=== PATIENT | male | born 1990 | race African-American/Black ===

== ENCOUNTER 2021-11-02 08:35 | Emergency (ER) | payer OTHER, SELFPAY ==
--- NOTE | ~2021-11-02 | CT_ITS ---
EXAMINATION: CT HEAD WITHOUT CONTRAST CLINICAL INFORMATION: Left-sided facial numbness. COMPARISON: None TECHNIQUE: Contiguous axial imaging was performed from the skull base to vertex without intravenous administration of contrast. This CT examination was performed using dose optimization techniques as appropriate, variously including the following: *Automated exposure control *Adjustment of mA and/or kV according to patient size (this includes techniques or standardized protocols for targeted exams where dose is matched to indication/reason for exam; i.e. extremities or head) *Use of iterative reconstruction technique DLP: 693.8 mGy-cm FINDINGS: There is no evidence of acute intracranial hemorrhage or territorial infarction. No abnormal mass effect or midline shift is seen. Aragon to white matter differentiation is well preserved. No extra-axial fluid collections are identified. The ventricles are normal in size. There is no abnormal attenuation within the brain parenchyma. The osseous structures and soft tissues are normal. The visualized paranasal sinuses are unremarkable. Bilateral mastoid air cells are partially opacified. Incidental note is made of prominent lobulated soft tissues within the roof of the nasopharynx, likely represent enlarged adenoid tissue. CT/CT head/brain wo con IMPRESSION: No acute intracranial pathology. Partially opacified bilateral mastoid air cells. Prominent lobulated soft tissue within the roof of the nasopharynx, likely represent enlarged adenoid tissue.
[2021-11-02 08:42] VITALS: BP 170/104; PULSE 71; RESP 18; TEMP 37; O2SAT 100; BMI 33.6
--- NOTE | 2021-11-02 09:27 | ED_ITS ---
HPI - Neuro Symptoms/Deficit General Chief Complaint: Neuro Symptoms/Deficit Stated Complaint: L side face numbness Time Seen by Provider: 11/02/21 09:00 Source: patient and family Mode of arrival: ambulatory Limitations: no limitations History of Present Illness HPI Narrative: 31-year-old male with a history of asthma, anxiety, mood swings here with reports of left-sided facial weakness and numbness since . Patient tells me he woke up morning feeling his left face was numb and when he went to drink water he had difficulty with holding the water in his mouth. He denies any speech changes, headache, dizziness, weakness, numbness or tingling of the extremities. He denies any recent travel, no recent illnesses. No recent tick bites. Related Data Previous Rx's Medication Instructions Recorded prednisone 20 mg tablet 40 mg PO DAILY #10 tab 11/02/21 valacyclovir 1 gram tablet 1,000 mg PO BID #14 tab 11/02/21 (Valtrex) Allergies Allergy/AdvReac Type Severity Reaction Status Date / Time shellfish derived Allergy Unknown ANAPHYLAXIS Unverified 03/13/20 16:03 [SHELLFISH DERIVED] Review of Systems Review of Systems: Yes all other systems are reviewed and are negative Constitutional: Constitutional: Reports no additional constitutional complaints, Denies body ache(s), Denies chills, Denies fever(s), Denies headache(s) and Denies weakness Eyes: Eyes: Reports no additional eye complaints and Denies change in vision ENT: Reports system reviewed and no additional complaints, except as documented, Denies dizziness, Denies headache(s), Denies nasal congestion, D enies nasal discharge and Denies neck pain Cardiovascular: Cardiovascular: Reports no additional cardiovascular complaints, Denies chest pain, Denies leg edema and Denies dyspnea Respiratory: Respiratory: Reports no additional respiratory complaints, Denies cough and Denies dyspnea Gastrointestinal: Gastrointestinal: Reports no additional gastrointestinal complaints, Denies abdominal pain, Denies diarrhea, Denies nausea and Denies vom iting Genitourinary: Genitourinary: Denies urinary incontinence Musculoskeletal: Musculoskeletal: Reports no additional musculoskeletal complaints, Denies back pain, Denies arthralgias, Denies joint swelling, Denies neck pain, Denies numbness and Denies tingling Integumentary/Breasts: Skin/Breast: Reports system reviewed and no additional complaints, except as docu and Denies rash Neurologic: Reports system reviewed and no additional complaints, except as documented, Denies Abnormal speech present, Denies dizziness, Denies headache(s), Denies numbness, Denies tingling and Denies weakness Comments: facial numbness/weakness PMFSH Past Medical History Attestation statement: The following information was validated with the patient. Source: old records reviewed and nursing notes reviewed Medical History Asthma Social History Social History Advance Directives: No Advance Directives Information Provided: No Physical Exam Vital Signs: Vital Signs: Last Vital Signs Temp 98.6 F 11/02/21 08:42 Pulse 84 11/02/21 10:02 Resp 16 11/02/21 10:02 BP 175/84 H 11/02/21 10:02 Pulse Ox 99 11/02/21 10:02 BMI result Body Mass Index 33.6 Const: General: cooperative, healthy appearing, comfortable and no acute distress Orientation/consciousness: patient oriented x3 Limitations: no limitations HEENT: Head: Yes normal to inspection Ears: hearing grossly normal javed aterally General nose exam: Normal external nose present Face and sinus: Yes normal facial exam Mouth: Normal oral and palatal mucosa present Throat: Yes posterior oropharynx normal Eyes: General: appearance normal, both eyes and all related structures Pupils: Equal, round and reactive pupils present Neck: Neck: Yes normal visual inspection Chest: Chest palpation & inspection: normal inspection of the chest Resp: Effort & Inspection: normal respiratory effort Auscultation: clear to auscultation bilaterally Cardio: Rate: regular rate Rhythm: regular rhythm Peripheral pulses: Peripheral pulses 2+ throughout GI: Inspection: Yes normal to inspection Palpation (GI): Soft to palpation and nontender Auscultation: normal bowel sounds Back/Spine/Pelvis: Thoracic/Lumbar Spine: thoracic and lumbar spine normal to inspection Skin: General skin exam: no rashes or lesions noted Neuro: Other: Left-sided facial weakness, left facial droop, tongue is deviated, unable to close left eye, flattened forehead left side with inability to raise his left eyebrow General: patient oriented x3, no focal motor deficits and normal sensation to monofilament Cranial nerves: Yes Equal, round and reactive pupils present and Yes Nystagmus not present Cognition (Neuro): normal cognition Speech: No Abnormal speech present Gait exam (Neuro): Normal gait present Motor exam (neuro): 5/5 motor strength present throughout Sensory Exam: Normal double simultaneous stimulation for sensation Extrem: General: Yes normal to inspection Course Course Course Narrative: 31-year-old male here with left-sided facial weakness and numbness since . No other focal neurological deficits on exam. 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 Patient is quite hypertensive with no history of same. He is also quite tearful and anxious. Hypertension may be related to underlying anxiety however due to neuro finding and high blood pressure will check CT head. Patient will also have labs done. He does not have a primary care doctor so will involve Case Management. His mom is quite concerned that he is quite a nxious all the time with mood swings. Patient denies any suicidal thoughts. He is interested in obtaining outpatient resources to set himself up with a therapist. Will obtain a care team consult Reevaluation(s) Reevaluation #1: CT head shows no acute finding. Labs are unremarkable. 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 Testing was sent for Lyme disease. No history of recent tick bites. Will hold on prescribing any doxycycline until his Lyme studies have returned. Will treat with prednisone and Valtrex. We discussed patching his eye at night time to prevent corneal abrasion and keeping the eye lubricated with saline eyedrops. Case management was able to get him a follow-up appointment on November 06 and this was provided to the patient. Care team at with the patient he was provided with outpatient resources for follow-up. He has no immediate safety concerns with no reports of suicidal homicide ideations. Reviewed worrisome signs and symptoms of when to return to the emergency department. Comfortable discharge home. Time: 12:06 MDM - Neuro Symptoms/Deficit MDM Narrative Medical decision making narrative: ana Medical Records Attestation: I reviewed the patient's medical records. Lab Data Attestation: I reviewed the patient's lab results. Result diagrams: 11/02/21 09:30 11/02/21 09:30 Labs: Lab Results 11/02/21 11/02/21 11/02/21 Range/Units 09:30 09:30 09:30 WBC 12.2 H (4.8-10.8) X10*3/uL RBC 5.03 (4.60-5.80) X10*6/uL Hgb 15.7 (14.0-18.0) g/dl Hct 47.3 (42.0-52.0) % MCV 94.0 (80.0-98.0) fL MCH 31.2 (27.0-33.0) pg MCHC 33.2 (31.0-36.0) g/dl RDW 13.0 (11.0-16.0) % Plt Count 198 (160-400) X10*3/uL MPV 11.9 (9.4-12.4) fL Absolute Nucleated RBC 0.000 (0.0-0.012) X10*3/uL Nucleated RBC % (auto) 0.0 (0.0-0.2) /100WBC Sodium 140 (135-145) mmol/L Potassium 4.8 (3.3-5.1) mmol/L Chloride 109 H (96-108) mmol/L Carbon Dioxide 25 (22-29) mmol/L Anion Gap 11 L (12-20) BUN 15 (9-16) mg/dL Creatinine 0.93 (0.5-1.4) mg/dL Estim Creat Clear Calc 129.2 Estimated GFR > 60 Random Glucose 102 (60-115) mg/dL Calcium 10.7 H (8.4-10.2) mg/dL Magnesium (1.6-2.6) mg/dL Total Bilirubin (0.0-1.0) mg/dL Direct Bilirubin (0.0-0.5) mg/dL AST (5-37) U/L ALT (0-40) U/L Alkaline Phosphatase (39-117) U/L Total Protein (6.5-8.0) g/dL Albumin (3.5-5.0) g/dL COVID-19 ([facility]) Negative (Negative) COVID-19 Clin Com See Note 11/02/21 Range/Units 09:30 WBC (4.8-10.8) X10*3/uL RBC (4.60-5.80) X10*6/uL Hgb (14.0-18.0) g/dl Hct (42.0-52.0) % MCV (80.0-98.0) fL MCH (27.0-33.0) pg MCHC (31.0-36.0) g/dl RDW (11.0-16.0) % Plt Count (160-400) X10*3/uL MPV (9.4-12.4) fL Absolute Nucleated RBC (0.0-0.012) X10*3/uL Nucleated RBC % (auto) (0.0-0.2) /100WBC Sodium (135-145) mmol/L Potassium (3.3-5.1) mmol/L Chloride (96-108) mmol/L Carbon Dioxide (22-29) mmol/L Anion Gap (12-20) BUN (9-16) mg/dL Creatinine (0.5-1.4) mg/dL Estim Creat Clear Calc Estimated GFR Random Glucose (60-115) mg/dL Calcium (8.4-10.2) mg/dL Magnesium 2.1 (1.6-2.6) mg/dL Total Bilirubin 0.4 (0.0-1.0) mg/dL Direct Bilirubin 0.2 (0.0-0.5) mg/dL AST 12 (5-37) U/L ALT 19 (0-40) U/L Alkaline Phosphatase 87 (39-117) U/L Total Protein 6.9 (6.5-8.0) g/dL Albumin 4.1 (3.5-5.0) g/dL COVID-19 ([facility]) (Negative) COVID-19 Clin Com Imaging Data CT scan - head: Attestation: I personally reviewed and interpreted this imaging study as follows: Radiologist's impression: FINDINGS: There is no evidence of acute intracranial hemorrhage or territorial infarction. No abnormal mass effect or midline shift is seen. Aragon to white matter differentiation is well preserved. No extra-axial fluid collections are identified. The ventricles are normal in size. There is no abnormal attenuation within the brain parenchyma. The osseous structures and soft tissues are normal. The visualized paranasal sinuses are unremarkable. Bilateral mastoid air cells are partially opacified. Incidental note is made of prominent lobulated soft tissues within the roof of the nasopharynx, likely represent enlarged adenoid tissue. ? CT/CT head/brain wo con IMPRESSION: No acute intracranial pathology. ? Partially opacified bilateral mastoid air cells. ? Prominent lobulated soft tissue within the roof of the nasopharynx, likely represent enlarged adenoid tissue. Discharge Plan Discharge Clinical Impression: Vogel's palsy Patient Disposition: Home, Self-Care Additional Instructions: Patch the eye at night time to prevent any scratching of the eye Keep the eye lubricated with saline eyedrops which he can buy [id number] You were provided with follow-ups for your visit today with your primary care doctor. You were also given referrals for [facility] Prescriptions: New prednisone 20 mg tablet 40 mg PO DAILY Qty: 10 0RF valacyclovir [Valtrex] 1 gram tablet 1,000 mg PO BID Qty: 14 0RF Referrals: [facility] [Provider Group] - 11/30/21 9:20 am (This is a new patient appointment with Kristie Greenfield. If you are unable to keep this appointment, please call the office to reschedule. ) Alva Blandon MD [Physician] - 11/06/21 8:00 am (Please call the office to cancel if you are unable to make this appointment. This is an ER follow up visit. ) Interventions: ED Discharge Assessment Last Done: 11/02/21 12:02 Discharge Date/Time: 11/02/21 12:03
[2021-11-02 09:42] LABS: Hematocrit 47.3 % (42.0-52.0); Hemoglobin 15.7 g/dl (14.0-18.0); Mean Corpuscular HGB Conc 33.2 g/dl (31.0-36.0); Mean Corpuscular Hemoglobin 31.2 pg (27.0-33.0); Mean Platelet Volume 11.9 fL (9.4-12.4); Platelet Count 198 X10*3/uL (160-400); Red Blood Count 5.03 X10*6/uL (4.60-5.80); White Blood Count 12.2 X10*3/uL (4.8-10.8)
[2021-11-02 09:50] LABS: COVID-19 Test Negative (Negative); IDNOW Serial# 16C4AD1C
[2021-11-02 09:57] LABS: Alanine Aminotransferase 19 U/L (0-40); Albumin Level 4.1 g/dL (3.5-5.0); Alkaline Phosphatase 87 U/L (39-117); Anion Gap 11 (12-20); Aspartate Amino Transferase 12 U/L (5-37); Bilirubin Direct 0.2 mg/dL (0.0-0.5); Bilirubin Total 0.4 mg/dL (0.0-1.0); Blood Urea Nitrogen 15 mg/dL (9-16); Calcium 10.7 mg/dL (8.4-10.2); Carbon Dioxide 25 mmol/L (22-29); Chloride 109 mmol/L (96-108); Creatinine Clr Calc Pharmacy 129.2; Estimated Glomerular Filt Rate > 60; Glucose Random 102 mg/dL (60-115); Magnesium 2.1 mg/dL (1.6-2.6); Potassium 4.8 mmol/L (3.3-5.1); Sodium 140 mmol/L (135-145); Total Protein 6.9 g/dL (6.5-8.0)
[2021-11-02 10:02] VITALS: BP 175/84; PULSE 84; RESP 16; O2SAT 99
--- NOTE | 2021-11-02 11:39 | MHC.CARE ---
Pt is tearful and does not feel comfortable discussing his psychiatric history. He denies SI/HI/AVH. He reports a history of inpt hospitalizations and psychiatric treatment 10+ years ago. He reports that he stopped taking his psychiatric medications at age 19 and that since he has occasional bouts of depression. CARE Team provided pt with [facility] Crisis phone number and pamphlet for [facility]. A referral to [facility] has been completed as well.
--- NOTE | 2021-11-02 12:39 | MHC.CM.ED ---
Received case management consult from KENNETH Palomares. Patient came to the ER due to left sided face numbness. Work up essentially negative. Patient does not have a PCP. This is why CM was consulted. Patient has Johnnie Machado listed as his PCP at [facility]. Patient has never been seen by this provider. ER follow up appointment made for 11/06/21 at 8am at [facility] with Mai Blandon. New patient appointment scheduled for 11/30/2021 at 920am with Kristie Greenfield. Contact info, date and time entered in d/c instructions. Continue to monitor for d/c needs.
[2021-11-03 23:06] LABS: Lyme Blot 1.18 index
[2021-11-04 08:24] LABS: Lyme Abs Screen POSITIVE
[2021-11-04 20:52] LABS: 18 KD (IgG) Band NON-REACTIVE; 23 KD (IgG) Band NON-REACTIVE; 23 KD (IgM) Band NON-REACTIVE; 28 KD (IgG) Band NON-REACTIVE; 30 KD (IgG) Band NON-REACTIVE; 39 KD (IgM) Band NON-REACTIVE; 41 KD (IgM) Band NON-REACTIVE; 45 KD (IgG) Band NON-REACTIVE; 58 KD (IgG) Band NON-REACTIVE; 66 KD (IgG) Band NON-REACTIVE; 93 KD (IgG) Band NON-REACTIVE; Lyme IgG Blot Interp NEGATIVE (NEGATIVE); Lyme IgM Blot Interp NEGATIVE (NEGATIVE)
== END 2021-11-02 12:03 | disposition home or self-care (01) ==
PROVIDERS: Nurse Practitioner Family; Emergency Provider Emergency Medicine; PCP Internal Medicine
DX: G51.0 Bell's palsy (principal); A69.20 Lyme disease, unspecified; I10 Essential (primary) hypertension; J45.909 Unspecified asthma, uncomplicated; Z20.822 Contact with and (suspected) exposure to COVID-19
CPT/HCPCS: 36415; 70450; 80048; 80076; 83735; 85027; 86617; 86618; 87635; 99284